=== PATIENT | female | born 1950 ===

== ENCOUNTER 2022-09-28 05:20 | Day surgery (SDC) | payer OTHER ==
[~2022-09-28] VITALS: Ht 154.9 cm; Wt 78.0 kg
[~2022-09-28 05:20] MED LIST: CRESTOR10 MG PO; DEXILANT60 MG PO; GABAPENTIN800 MG; HYZAAR 100-12.1 EACH PO; PEPCID AC20 MG PO; PROZAC40 MG PO; SINGULAIR10 MG PO; VOLTAREN ARTHRI20 GM; XANAX XR0.5 MG PO; XYZAL5 MG PO; ZANAFLEX4 M1 PO
[2022-09-28] MEDS ORDERED: TRAM1TAB98 PO (10:51)
== END 2022-09-28 13:10 | disposition home or self-care (01) ==
LOC: CIR.AMB 05:20 → EDBD 10:45 → CIR.AMB 10:45
PROVIDERS: ATTEND Surgery
DX: R15.9 Full incontinence of feces (principal); R15.2 Fecal urgency; K57.30 Diverticulosis of large intestine without perforation or abscess without bleeding; R19.4 Change in bowel habit; K64.2 Third degree hemorrhoids; K58.0 Irritable bowel syndrome with diarrhea; I10 Essential (primary) hypertension; Z20.822 Contact with and (suspected) exposure to COVID-19; Z03.818 Encounter for observation for suspected exposure to other biological agents ruled out; Z91.013 Allergy to seafood
CPT/HCPCS: 64581; 64590; 95972; C1767; C1778

== ENCOUNTER 2022-10-12 05:20 | Day surgery (SDC) | payer OTHER ==
[~2022-10-12 05:20] MED LIST changes: +TRAM1TAB98 PO
[2022-10-12] MEDS ORDERED: TRAM1TAB98 PO (08:34)
== END 2022-10-12 11:00 | disposition home or self-care (01) ==
LOC: CIR.AMB 05:20
PROVIDERS: ATTEND Surgery
DX: R15.9 Full incontinence of feces (principal); R15.2 Fecal urgency; K57.30 Diverticulosis of large intestine without perforation or abscess without bleeding; R19.4 Change in bowel habit; K64.2 Third degree hemorrhoids; K58.0 Irritable bowel syndrome with diarrhea; Z20.822 Contact with and (suspected) exposure to COVID-19; Z91.013 Allergy to seafood
CPT/HCPCS: 64590; 95972; L8679